=== PATIENT | female | born 1980 | race Hispanic/Latino ===

== ENCOUNTER 2025-10-08 22:55 | Inpatient (IN) | payer SELFPAY ==
[~2025-10-08] VITALS: Ht 165.1 cm; Wt 78.3 kg
[2025-10-09 00:01] LABS: IMMATURE GRANULOCYTE ABSOLUTE 0.04 K/uL (0-1); NUCLEATED RED BLOOD CELLS 0.0 % (0.0-0.19); PLATELET COUNT (AUTO) 300 K/uL (130-400); RED BLOOD CELL COUNT(AUTO) 4.01 MIL/uL (4.00-5.50); RED CELL DISTRIBUTION WIDTH 12.6 % (11.0-15.5); WHITE BLOOD COUNT (AUTO) 10.7 K/uL (4.8-10.8)
[2025-10-09 00:04] LABS: APPEARANCE,URINE CLOUDY (CLEAR); GLUCOSE, URINE (UA) NEGATIVE (NEGATIVE); HCG,QUALITATIVE URINE NEGATIVE (NEGATIVE); LEUKOCYTE ESTERASE ,URINE 500 Leu/uL (NEGATIVE); NITRATE,URINE NEGATIVE (NEGATIVE); OCCULT BLOOD,URINE SMALL (NEGATIVE)
[2025-10-09 00:08] LABS: ADD UA MICROSCOPIC YES
[2025-10-09 00:09] LABS: CREATININE 0.8 mg/dL (0.5-1.0); GLOMERULAR FILTR. RATE CALC 93.0 mL/min (>90); GLUCOSE,RANDOM 85.0 mg/dL (70-105); SODIUM SERUM 135.0 mmol/L (136-145); UREA NITROGEN, BLOOD 12.0 mg/dL (7-18)
[2025-10-09] MEDS: 0.9%NACL 1000ML 1,000 ML IV ONE (00:11)
[2025-10-09 00:27] LABS: NON-SQUAMOUS EPITHELIAL CELL 4 /HPF (0-2); SQUAMOUS EPITHELIAL CELL,UR MANY /HPF (0-2)
--- NOTE | 2025-10-09 01:49 | HMCIMG ---
EXAM: CT Abdomen and Pelvis without V contrast CLINICAL HISTORY: Right flank pain TECHNIQUE: Thin collimated axial CT images of the abdomen and pelvis were obtained, with sagittal and coronal reformatted images also submitted. CT scan is done according to ALARA (As Low As Reasonably Achievable). CONTRAST: None COMPARISON: None. FINDINGS: Unremarkable visualized lung parenchyma. Post cholecystectomy status. Mild fatty infiltration of the liver. No obvious focal lesion. No focal lesion in the adrenal glands, pancreas, or spleen. There is a 4 mm nonobstructive calculus in the right kidney upper pole calyx. Mild fatty stranding around the right perinephric region. No evidence of right ureteric calculus No focal abnormality within the liver, gallbladder, pancreas, spleen, adrenals, or kidneys. Large bowel loops are moderately distended with fecal matter. There is no obvious bowel wall thickening. Bowel loops are normal in caliber without evidence of obstruction or ileus. The appendix is normal. The urinary bladder is collapsed. There is an 8 x 8 x 10 cm cystic structure in relation to the right ovary and a 3.5 x 2.7 x 3.2 cm cystic structure in relation to the left ovary. The uterus appears small in size. Abdominal and pelvic vessels are patent. No lymphadenopathy. No free fluid. There is no acute osseous abnormality. IMPRESSIONS: Bilateral ovarian cysts, recommend an ultrasound of the pelvis for further evaluation. Nonobstructive right renal calculus. Mild perinephric fat stranding on the right side, concerning medical renal disease. /[place]
--- NOTE | 2025-10-09 02:12 | ERN ---
General Chief Complaint: Painful Urination Stated Complaint: C/O PAIN WITH BURNING WHEN VOIDING ONSET YESTERDAY Time Seen by MD: 22:57 Time Seen by Midlevel: 22:57 Source: patient History of Present Illness Initial Comments Patient is a 45-year-old female presenting to the emergency department for evaluation of dysuria that started yesterday. Today she developed right flank pain which prompted the ER visit. She denies any vomiting, fever, chills, or any other symptoms at this time Allergies: Coded Allergies: No Known Allergies (Unverified Allergy, Unknown, 10/08/25) Past Medical History Past Medical History: No Pertinent History Past Surgical History: Hysterectomy, Cholecystectomy, Other Surgical History Other: BLADDER LIFT ROS Dictation CONSTITUTIONAL: Negative except for HPI HEAD/FACE: Negative except for HPI EENT: Negative except for HPI RESPIRATORY: Negative except for HPI GASTROINTESTINAL/ABDOMINAL: Negative except for HPI GENITOURINARY: Negative except for HPI MUSCULOSKELETAL: Negative except for HPI INTEGUMENTARY: Negative except for HPI NEUROLOGICAL/PSYCH: Negative except for HPI HEMATOLOGIC/LYMPHATIC: Negative except for HPI All Systems Negative, Except as noted above. 13 point review of systems assessed and all negative except for above. Physical Exam Physical Exam Dictation Vital Signs reviewed General Appearance: Alert, oriented x 3, no acute distress, well developed, nourished. Head and Face: non-traumatic. Eyes: PERRL, pink conjunctivas, eyelid no trauma, anterior chamber with arcus senilis. Ears: Pinnas intact and no signs of trauma or erythema ear canals clear and no discharge TM no erythema Nose: No discharge, no bleeding. Oropharynx: Mouth normal, tongue pink, pharynx clear,no erythema, tonsils no exudates, no abscesses noted, mucous membrane moist Neck: Supple, non-tender, no thyromegaly, no masses, no JVD, no bruits Breast:Deferred Chest:No tenderness, no crepitus, no paradoxical movement, no retractions Lungs:Clear, well-ventilated, symmetric, no rales, no wheezing, no rhonchi, no stridor, good breath sounds bilaterally Heart: Regular rate, regular rhythm, no murmur, no gallops Vascular: no peripheral edema, Abdomen: Soft, positive bowel sounds, nondistended, no guarding, nontender, no rebound, no masses no hepatomegaly, no splenomegaly, no Vazquez's sign, no hernias. Rectal: Deferred Genital: Deferred Neurological: Normal speech, motor function intact, sensory function intact Musculoskeletal: Neck nontender, full range of motion, back nontender, full range of motion, Extremities: nontender, full range of motion Skin: Color pink, dry, no turgor, no rash, no lacerations, no abrasions, no contusions. Lymphatic: Deferred Results Laboratory and Microbiology Lab and Micro Result Laboratory Tests Test 10/08/25 23:35 10/08/25 23:52 Urine Color YELLOW (YELLOW) Urine Appearance CLOUDY (CLEAR) H Urine pH 5.5 (5.0-8.0) Urine Specific Stuart 1.028 (1.001-1.031) Urine Protein 30 mg/dL (NEGATIVE) H Urine Glucose (UA) NEGATIVE mg/dL (NEGATIVE) Urine Ketones 5 mg/dL (NEGATIVE) H Urine Occult Blood SMALL (NEGATIVE) H Urine Nitrate NEGATIVE (NEGATIVE) Urine Bilirubin NEGATIVE mg/dL (NEGATIVE) Urine Urobilinogen 0.2 mg/dL (0.2-1.0) Urine Leukocyte Esterase 500 Hawa/uL (NEGATIVE) H Urine RBC 11-25 /HPF (0-1) H Urine WBC 51-100 /HPF (0-1) H Urine Squamous Epithelial Cells MANY /HPF (0-2) Urine Non-Squamous Epithelial Cells 4 /HPF (0-2) Urine Bacteria FEW /HPF (None Seen) Urine HCG, Qualitative NEGATIVE (NEGATIVE) White Blood Count 10.7 K/uL (4.8-10.8) Red Blood Count 4.01 MIL/uL (4.00-5.50) Hemoglobin 11.9 g/dL (12.0-16.0) L Hematocrit 35.9 % (36-48) L Mean Corpuscular Volume 89.5 fL (79-99) Mean Corpuscular Hemoglobin 29.7 pg (27.0-33.0) Mean Corpuscular Hemoglobin Concent 33.1 g/dL (32.0-36.0) Red Cell Distribution Width 12.6 % (11.0-15.5) Platelet Count 300 K/uL (130-400) Mean Platelet Volume 9.3 fL (7.5-10.5) Immature Granulocyte % (Auto) 0.4 % (0-1) Neutrophils (%) (Auto) 69.2 % (40.0-77.0) Lymphocytes (%) (Auto) 16.7 % (21.0-51.0) L Monocytes (%) (Auto) 12.5 % (3.0-13.0) Eosinophils (%) (Auto) 0.5 % (0.0-8.0) Basophils (%) (Auto) 0.7 % (0.0-5.0) Neutrophils # (Auto) 7.4 K/uL (1.8-7.7) Lymphocytes # (Auto) 1.8 K/uL (1.0-4.8) Monocytes # (Auto) 1.3 K/uL (0.1-1.0) H Eosinophils # (Auto) 0.05 K/uL (0.00-0.70) Basophils # (Auto) 0.08 K/uL (0.00-0.20) Absolute Immature Granulocyte (auto 0.04 K/uL (0-1) Nucleated Red Blood Cells 0.0 % (0.0-0.19) Sodium Level 135 mmol/L (136-145) L Potassium Level 3.4 mmol/L (3.5-5.1) L Chloride Level 98 mmol/L (101-111) L Carbon Dioxide Level 30 mmol/L (21-32) Blood Urea Nitrogen 12 mg/dL (7-18) Creatinine 0.8 mg/dL (0.5-1.0) Glomerular Filtration Rate Calc 93 mL/min (>90) Random Glucose 85 mg/dL (70-105) Total Calcium 8.8 mg/dL (8.5-10.1) Labs Reviewed?: Yes MDM MDM: Differential diagnosis: Pyelonephritis, urinary tract infection, ureter stone Rationale: Tests considered and ordered secondary to shared decision making include: Previous outside records reviewed: Old ER visits. Risk of complication and/or morbidity or mortality of patient management: None Medications-Per medication reconciliation Need for hospitalization: Patient does meet criteria for hospitalization. Need for emergency major/minor surgery: No There are no social concerns with this patient. Prescription drug management Prescriptions will include symptomatic care Patient's prior external medical records from other ER visits were reviewed by me as indicated. Prior testing and results from previous visits were reviewed. Prior tests were taken into account with medical decision making and resource utilization, independent historian/historians were used to obtain complete medical history. I independently interpreted the test that were performed, results were reviewed by me and considered findings on radiology if ordered. Medical management and examination interpretation discussions were had by me with other qualified healthcare professionals as indicated for the patient's care. ED Course Orders Procedure Category Date Status Time Urinalysis Profile LAB 10/08/25 Complete 23:05 ,Urine Test LAB 10/08/25 Complete 23:05 Cbc With Differential LAB 10/08/25 Complete 23:43 Basic Metabolic Panel LAB 10/08/25 Complete 23:43 0.9%Nacl 1000ml (Ns PHA 10/09/25 Complete 1000ml) 00:00 Ketorolac PHA 10/09/25 Complete Tromethamine 15mg/Ml 00:00 Culture Urine CAMILA 10/09/25 In Process 00:08 Ct Abdomen/Pelvis W/O CT 10/09/25 Resulted Contrast 00:12 Ceftriaxone 1g Vial PHA 10/09/25 Complete (Rocephine 1g Inj) 01:30 Tamsulosin Hcl PHA 10/09/25 Complete (Flomax) 02:00 Current Medications Medications (Trade) Dose Ordered Sig/Angelica Route PRN Reason Start Time Stop Time Status Last Admin Dose Admin Ceftriaxone Sodium (ROCEphine 1G INJ) 1 gm ONCE ONCE IVPB 10/09/25 01:30 10/09/25 01:31 DC 10/09/25 01:37 Ketorolac Tromethamine (toRADol) 15 mg ONCE ONCE IV 10/09/25 00:00 10/09/25 00:01 DC 10/09/25 00:11 Sodium Chloride 1,000 ml @ 0 mls/hr ONCE ONCE IV 10/09/25 00:00 10/09/25 00:01 DC 10/09/25 00:11 Tamsulosin HCl (FloMAX) 0.4 mg ONCE ONCE PO 10/09/25 02:00 10/09/25 02:01 DC Vital Signs Date Time Temp Pulse Resp B/P (MAP) Pulse Ox O2 Delivery O2 Flow Rate FiO2 10/08/25 22:58 98.8 101 20 117/78 98 Room Air DX & DISP Disposition: Inpatient Departure Impression: Primary Impression: Right ureteral stone Additional Impressions: Urinary tract infection, Pyelonephritis of right kidney Condition: Stable Referrals: SELF,REFERRAL (PCP) Time of Disposition: 02:11 I have reviewed the case, and I agree with, Diagnosis and Plan I performed the substantive portion of the visit. I have reviewed and personally made and approve the management plan that is documented in the note by myself or the DIMA. I acknowledge for responsibility for the patient's management plan. MARJORIE ACKERMAN PAC Oct 09, 2025 02:12
--- NOTE | 2025-10-09 03:08 | HP ---
[facility] HISTORY AND PHYSICAL Date of Service: Oct 09, 2025 Time of Service: 02:28 PCD: Self Referral HISTORY OF PRESENT ILLNESS: This is a 45 year old female,with past medical history of kidney stone 25 year ago who presents to the ED for complaints of right flank pain started 2 days ago.Patient also reports having frequent urination , painful and burning sensation on urination. Seen and examined patient int he ED awake,alert and coherent,complaints of 8/10 right flank pain .Patient denies fever,nausea,vomiting,chest pain,palpitation and shortness of breath.Last V/S T98.8,HR 101,BP 117/78 Sat 98% RA.Labs: Hgb 11,Hct 35 Platelet 300.Na 135 Potassium 3.4,Chloride .Urinalysis consistent with urinary tract infection.CT abdomen/Pelvis without contrast bilateral ovarian cysts,recommend an ultrasound of the pelvis for further evaluation.Nonobstructive right renal calculus.Mild perinephric fat stranding on the right side,concerning medical renal disease.While in the ER patient received Tamsulosin,Rocephin 1 gram IV, Toradol 15mg IV,NS 1 L NS.Will admit patient for further medical management. REVIEW OF SYSTEMS CONSTITUTIONAL: Denies fevers, chills, or night sweats. No unintentional weight loss reported. NEUROLOGICAL: Denies headache, amaurosis fugax, motor weakness, sensory deficit, vertigo/spinning sensation, gait abnormalities, or tremors. ENT: No hearing loss, otalgia, otorrhea, rhinitis, rhinorrhea, hoarseness, or sore throat. CARDIOVASCULAR: Denies any exertional angina, dyspnea on exertion, orthopnea, paroxysmal nocturnal dyspnea, palpitations, life-threatening arrhythmias, claudication. PULMONARY: Denies any shortness of breath, cough, phlegm/sputum, hemoptysis, pleuritic chest pain. SLEEP: Denies morning headaches, daytime somnolence or napping. Denies difficulty falling asleep, staying asleep, waking from sleep. Denies knowledge of snoring. GASTROINTESTINAL: Denies any type of dysphagia to either liquids or solids. Denies nausea, vomiting, pyrosis, early satiety, abdominal pain, diarrhea, constipation, or changes in stool consistency or caliber. Denies coffee-ground emesis, hematemesis, hematochezia, or melanotic stools. GENITOURINARY: Complained of urinary frequency burning sensation Denies urgency, nocturia, hematuria or incontinence (Storage/Irritative symptoms.) Low urinary stream, straining to void, urinary intermittency or hesitancy, splitting of the voiding stream, terminal dribbling. ENDOCRINOLOGIC: Denies polyuria, polydipsia, polyphagia or heat/cold intolerances. HEMATOLOGIC: Denies thrombophilia/previous clots, or coagulopathy/bleeding disorders. ONCOLOGIC: Denies personal history of malignancy. DERMATOLOGIC: Denies rashes or pruritus. PSYCHIATRIC: Denies any suicidal or homicidal ideation. Denies hallucinations. PAST MEDICAL HISTORY: [ Kidney stone] PAST SURGICAL HISTORY: [ Cholecystectomy,bladder lift R wrist cyst removal bilateral axillary fat removal] PAST SOCIAL HISTORY: [ Patient lives with .Patient denies alcohol,cigarette and recreational drug use ] FAMILY HISTORY: [ noncontributory ] Coded Allergies: No Known Allergies (Unverified Allergy, Unknown, 10/08/25) PHYSICAL EXAM GENERAL APPEARANCE: The patient is awake, alert, and oriented, in no acute cardiopulmonary distress. NEUROLOGICAL: Cranial nerves II-XII grossly intact. Motor is 5/5 in bilateral upper and lower extremities proximal to distal. No sensory deficits. HEENT: Face is symmetric. Pupils are equal and reactive. Extraocular movements are intact. NECK: Supple. No JVD. No thyromegaly. No submental, submandibular, pre- /postauricular, occipital or supraclavicular lymphadenopathy. CHEST: Normal chest expansion. No Telemetry. LUNGS: Absence of any rales, rhonchi or any wheezing. CARDIOVASCULAR: Regular. S1 and S2 normal. No appreciable rubs, murmurs or gallops. ABDOMEN: Soft, nontender, and nondistended. There is no rebound, voluntary guarding, or rigidity. : Deferred. No Ramirez. EXTREMITIES: Non-edematous and not cyanotic. No clubbing. Good capillary refill. SKIN: No skin breakdown. Vital Sign (Last 24 Hours) 10/08/25 22:58 Temp 98.8 Pulse 101 Resp 20 B/P (MAP) 117/78 Pulse Ox 98 O2 Delivery Room Air LABS: Laboratory: Test 10/08/25 23:52 10/08/25 23:35 Range/Units White Blood Count 10.7 4.8-10.8 K/uL Red Blood Count 4.01 4.00-5.50 MIL/uL Hemoglobin 11.9 L 12.0-16.0 g/dL Hematocrit 35.9 L 36-48 % Mean Corpuscular Volume 89.5 79-99 fL Mean Corpuscular Hemoglobin 29.7 27.0-33.0 pg Mean Corpuscular Hemoglobin Concent 33.1 32.0-36.0 g/dL Red Cell Distribution Width 12.6 11.0-15.5 % Platelet Count 300 130-400 K/uL Mean Platelet Volume 9.3 7.5-10.5 fL Immature Granulocyte % (Auto) 0.4 0-1 % Neutrophils (%) (Auto) 69.2 40.0-77.0 % Lymphocytes (%) (Auto) 16.7 L 21.0-51.0 % Monocytes (%) (Auto) 12.5 3.0-13.0 % Eosinophils (%) (Auto) 0.5 0.0-8.0 % Basophils (%) (Auto) 0.7 0.0-5.0 % Neutrophils # (Auto) 7.4 1.8-7.7 K/uL Lymphocytes # (Auto) 1.8 1.0-4.8 K/uL Monocytes # (Auto) 1.3 H 0.1-1.0 K/uL Eosinophils # (Auto) 0.05 0.00-0.70 K/uL Basophils # (Auto) 0.08 0.00-0.20 K/uL Absolute Immature Granulocyte (auto 0.04 0-1 K/uL Nucleated Red Blood Cells 0.0 0.0-0.19 % Sodium Level 135 L 136-145 mmol/L Potassium Level 3.4 L 3.5-5.1 mmol/L Chloride Level 98 L 101-111 mmol/L Carbon Dioxide Level 30 21-32 mmol/L Blood Urea Nitrogen 12 7-18 mg/dL Creatinine 0.8 0.5-1.0 mg/dL Glomerular Filtration Rate Calc 93 >90 mL/min Random Glucose 85 70-105 mg/dL Total Calcium 8.8 8.5-10.1 mg/dL Urine Color YELLOW YELLOW Urine Appearance CLOUDY H CLEAR Urine pH 5.5 5.0-8.0 Urine Specific Alex 1.028 1.001-1.031 Urine Protein 30 H NEGATIVE mg/dL Urine Glucose (UA) NEGATIVE NEGATIVE mg/dL Urine Ketones 5 H NEGATIVE mg/dL Urine Occult Blood SMALL H NEGATIVE Urine Nitrate NEGATIVE NEGATIVE Urine Bilirubin NEGATIVE NEGATIVE mg/dL Urine Urobilinogen 0.2 0.2-1.0 mg/dL Urine Leukocyte Esterase 500 H NEGATIVE Hawa/uL Urine RBC 11-25 H 0-1 /HPF Urine WBC 51-100 H 0-1 /HPF Urine Squamous Epithelial Cells MANY 0-2 /HPF Urine Non-Squamous Epithelial Cells 4 0-2 /HPF Urine Bacteria FEW None Seen /HPF Urine HCG, Qualitative NEGATIVE NEGATIVE DIAGNOSTICS / RADIOLOGY: [ ] ASSESSMENT: Right flank pain secondary to non obstructive right renal calculus POA Acute urinary tract infection POA Hypokalemia POA Hyponatremia POA Hypochloremia POA Bilateral ovarian cysts per CT POA PLAN: We will admit patient in medical surgical We will start on regular diet We will start on tamsulosin 0.4 mg p.o. daily We will start on NS @100 ml/hr x 1 bag and re evaluate Continue Rocephin 1 g IV b.i.d. for empiric coverage We will start on famotidine 20 mg p.o. daily for GI prophylaxis We will replace electrolytes as needed per protocol We will add prn medication for fever,pain,cough , nausea and vomiting We will seek urology consultation We will request labs in am Further orders to follow depending on above results Case discussed with attending physician and came up with above treatment and plan of care. ADVANCED CARE PLANNING 1. Which of the following were discussed? Hospice Care - No Therapeutic options - Yes Advance Directives - No Other discussions - 2. Discussed with who? Patient 3. Voluntary nature of this service was explained to the patient? Yes 4. Amount of time spent - __23 min 5. Reviewed by Physician? (if this service was performed by NPP) Yes Patient seen and examined by me. Agree with note by STUDENT DEVELOPMENT SPECIALIST SEE ADDITIONAL ORDERS PER CHART DISCUSSED WITH NURSING STAFF BRETT PATELP Oct 09, 2025 03:08
[2025-10-09] MEDS ORDERED: MAGNESIUM 2GM PREMIX 50ML 50 ML IV PRN (03:30)
[2025-10-09] MEDS ORDERED: PoTASSium chl 10% ELIXIR 20MEQ 20 MEQ/15 ML UDCUP PO PRN (03:30)
[2025-10-09] MEDS: PoTASSium chloRIDE 20MEQ ER 20 MEQ ERTAB PO PRN (03:58)
[2025-10-09] MEDS: HYDROcodone/APAP 5/325 1 TAB TABLET PO ONE (03:58)
[2025-10-09] MEDS: 0.9%NACL 1000ML 1,000 ML IV SCH (03:58)
[2025-10-09 04:00] VITALS: BP 110/86; PULSE 81; RESP 18; TEMP 97.8
[2025-10-09 04:52] LABS: IMMATURE GRANULOCYTE ABSOLUTE 0.02 K/uL (0-1); NUCLEATED RED BLOOD CELLS 0.0 % (0.0-0.19); PLATELET COUNT (AUTO) 272 K/uL (130-400); RED BLOOD CELL COUNT(AUTO) 3.66 MIL/uL (4.00-5.50); RED CELL DISTRIBUTION WIDTH 12.7 % (11.0-15.5); WHITE BLOOD COUNT (AUTO) 8.5 K/uL (4.8-10.8)
[2025-10-09 05:19] LABS: ASPARTATE AMINOTRANSFERASE 27.0 U/L (10-37); CREATININE 0.7 mg/dL (0.5-1.0); GLOMERULAR FILTR. RATE CALC 109.0 mL/min (>90); GLUCOSE,RANDOM 84.0 mg/dL (70-105); SODIUM SERUM 136.0 mmol/L (136-145); TOTAL PROTEIN, SERUM 7.3 g/dL (6.0-8.3); UREA NITROGEN, BLOOD 12.0 mg/dL (7-18)
[2025-10-09 08:00] VITALS: BP 102/65; PULSE 59; RESP 16; TEMP 97.4
[2025-10-09] MEDS: FAMOTIDINE 20MG TAB PO SCH (08:51)
--- NOTE | 2025-10-09 10:36 | PN ---
[facility] PROGRESS NOTE Date of Service: Oct 09, 2025 Time of Service: 10:36 SUBJECTIVE: HISTORY OF PRESENT ILLNESS: This is a 45 year old female,with past medical history of kidney stone 25 year ago who presents to the ED for complaints of right flank pain started 2 days ago.Patient also reports having frequent urination , painful and burning sensation on urination. Seen and examined patient int he ED awake,alert and coherent,complaints of 8/10 right flank pain .Patient denies fever,nausea,vomiting,chest pain,palpitation and shortness of breath.Last V/S T98.8,HR 101,BP 117/78 Sat 98% RA.Labs: Hgb 11,Hct 35 Platelet 300.Na 135 Potassium 3.4,Chloride .Urinalysis consistent with urinary tract infection.CT abdomen/Pelvis without contrast bilateral ovarian cysts,recommend an ultrasound of the pelvis for further evaluation.Nonobstructive right renal calculus.Mild perinephric fat stranding on the right side,concerning medical renal disease.While in the ER patient received Tamsulosin,Rocephin 1 gram IV, Toradol 15mg IV,NS 1 L NS.Will admit patient for further medical management. 10/09/2025: Patient was seen and evaluated this morning, no family at bedside. Case discussed with RN, no acute overnight events. Patient is awake, alert, oriented x3, saturating 98% with room air. Patient complains of pain in suprapubic region and right flank, painful and burning sensation while urinating . She denies chest pain, shortness of breath, palpitations. Urinalysis positive for UTI, pending culture. Abdominal CT showed bilateral ovarian cyst, nonobstructing right renal calculus. Ultrasound pelvis was ordered to further evaluate ovarian cyst. Continue Flomax, Rocephin, IV fluids, Pepcid. REVIEW OF SYSTEMS CONSTITUTIONAL: Denies fevers, chills, or night sweats. No unintentional weight loss reported. NEUROLOGICAL: Denies headache, amaurosis fugax, motor weakness, sensory deficit, vertigo/spinning sensation, gait abnormalities, or tremors. ENT: No hearing loss, otalgia, otorrhea, rhinitis, rhinorrhea, hoarseness, or sore throat. CARDIOVASCULAR: Denies any exertional angina, dyspnea on exertion, orthopnea, paroxysmal nocturnal dyspnea, palpitations, life-threatening arrhythmias, claudication. PULMONARY: Denies any shortness of breath, cough, phlegm/sputum, hemoptysis, pleuritic chest pain. SLEEP: Denies morning headaches, daytime somnolence or napping. Denies difficulty falling asleep, staying asleep, waking from sleep. Denies knowledge of snoring. GASTROINTESTINAL: Denies any type of dysphagia to either liquids or solids. Denies nausea, vomiting, pyrosis, early satiety, abdominal pain, diarrhea, constipation, or changes in stool consistency or caliber. Denies coffee-ground emesis, hematemesis, hematochezia, or melanotic stools. GENITOURINARY: Complained of urinary frequency burning sensation Denies urgency, nocturia, hematuria or incontinence (Storage/Irritative symptoms.) Low urinary stream, straining to void, urinary intermittency or hesitancy, splitting of the voiding stream, terminal dribbling. ENDOCRINOLOGIC: Denies polyuria, polydipsia, polyphagia or heat/cold intolerances. HEMATOLOGIC: Denies thrombophilia/previous clots, or coagulopathy/bleeding disorders. ONCOLOGIC: Denies personal history of malignancy. DERMATOLOGIC: Denies rashes or pruritus. PSYCHIATRIC: Denies any suicidal or homicidal ideation. Denies hallucinations. PHYSICAL EXAM GENERAL APPEARANCE: The patient is awake, alert, and oriented, in no acute cardiopulmonary distress. NEUROLOGICAL: Cranial nerves II-XII grossly intact. Motor is 5/5 in bilateral upper and lower extremities proximal to distal. No sensory deficits. HEENT: Face is symmetric. Pupils are equal and reactive. Extraocular movements are intact. NECK: Supple. No JVD. No thyromegaly. No submental, submandibular, pre- /postauricular, occipital or supraclavicular lymphadenopathy. CHEST: Normal chest expansion. No Telemetry. LUNGS: Absence of any rales, rhonchi or any wheezing. CARDIOVASCULAR: Regular. S1 and S2 normal. No appreciable rubs, murmurs or gallops. ABDOMEN: Soft, nontender, and nondistended. There is no rebound, voluntary guarding, or rigidity. : Deferred. No Ramirez. EXTREMITIES: Non-edematous and not cyanotic. No clubbing. Good capillary refill. SKIN: No skin breakdown. Vital Signs (last 8hr) Date Time Temp Pulse Resp B/P (MAP) Pulse Ox O2 Delivery O2 Flow Rate FiO2 10/09/25 08:00 97.3 59 16 102/65 100 Room Air 10/09/25 05:00 Room Air* 0 21 10/09/25 04:06 98.4 79 18 100/60 99 Room Air* 0 21 10/09/25 04:00 97.9 81 18 110/86 97 Room Air LABS: Laboratory: Test 10/09/25 09:04 10/09/25 04:41 10/08/25 23:35 Range/Units Lactic Acid Level 1.0 0.8-2.5 mmol/L C-Reactive Protein, Quantitative 67.30 H 0.5-3.0 mg/L Procalcitonin < 0.05 L 0.05-0.5 ng/mL Thyroid Stimulating Hormone (TSH) 2.98 0.36-3.74 uIU/mL White Blood Count 8.5 4.8-10.8 K/uL Red Blood Count 3.66 L 4.00-5.50 MIL/uL Hemoglobin 11.1 L 12.0-16.0 g/dL Hematocrit 32.4 L 36-48 % Mean Corpuscular Volume 88.5 79-99 fL Mean Corpuscular Hemoglobin 30.3 27.0-33.0 pg Mean Corpuscular Hemoglobin Concent 34.3 32.0-36.0 g/dL Red Cell Distribution Width 12.7 11.0-15.5 % Platelet Count 272 130-400 K/uL Mean Platelet Volume 9.4 7.5-10.5 fL Immature Granulocyte % (Auto) 0.2 0-1 % Neutrophils (%) (Auto) 62.1 40.0-77.0 % Lymphocytes (%) (Auto) 22.8 21.0-51.0 % Monocytes (%) (Auto) 13.2 H 3.0-13.0 % Eosinophils (%) (Auto) 0.8 0.0-8.0 % Basophils (%) (Auto) 0.9 0.0-5.0 % Neutrophils # (Auto) 5.3 1.8-7.7 K/uL Lymphocytes # (Auto) 2.0 1.0-4.8 K/uL Monocytes # (Auto) 1.1 H 0.1-1.0 K/uL Eosinophils # (Auto) 0.07 0.00-0.70 K/uL Basophils # (Auto) 0.08 0.00-0.20 K/uL Absolute Immature Granulocyte (auto 0.02 0-1 K/uL Nucleated Red Blood Cells 0.0 0.0-0.19 % Sodium Level 136 136-145 mmol/L Potassium Level 3.4 L 3.5-5.1 mmol/L Chloride Level 100 L 101-111 mmol/L Carbon Dioxide Level 26 21-32 mmol/L Blood Urea Nitrogen 12 7-18 mg/dL Creatinine 0.7 0.5-1.0 mg/dL Glomerular Filtration Rate Calc 109 >90 mL/min Random Glucose 84 70-105 mg/dL Total Calcium 8.3 L 8.5-10.1 mg/dL Magnesium Level 1.90 1.80-2.40 mg/dL Total Bilirubin 0.3 0.2-1.0 mg/dL Aspartate Amino Transf (AST/SGOT) 27 10-37 U/L Alanine Aminotransferase (ALT/SGPT) 26 12-78 U/L Alkaline Phosphatase 81 50-136 U/L Total Protein 7.3 6.0-8.3 g/dL Albumin 3.2 L 3.5-5.0 g/dL Urine Color YELLOW YELLOW Urine Appearance CLOUDY H CLEAR Urine pH 5.5 5.0-8.0 Urine Specific Roff 1.028 1.001-1.031 Urine Protein 30 H NEGATIVE mg/dL Urine Glucose (UA) NEGATIVE NEGATIVE mg/dL Urine Ketones 5 H NEGATIVE mg/dL Urine Occult Blood SMALL H NEGATIVE Urine Nitrate NEGATIVE NEGATIVE Urine Bilirubin NEGATIVE NEGATIVE mg/dL Urine Urobilinogen 0.2 0.2-1.0 mg/dL Urine Leukocyte Esterase 500 H NEGATIVE [place]/uL Urine RBC 11-25 H 0-1 /HPF Urine WBC 51-100 H 0-1 /HPF Urine Squamous Epithelial Cells MANY 0-2 /HPF Urine Non-Squamous Epithelial Cells 4 0-2 /HPF Urine Bacteria FEW None Seen /HPF Urine HCG, Qualitative NEGATIVE NEGATIVE Current Medications Medications (Trade) Dose Ordered Sig/Angelica Route PRN Reason Start Time Stop Time Status Last Admin Dose Admin Acetaminophen (TYLenol 325MG TAB) 650 mg Q4H PRN PO MILD PAIN (1-3) 10/09/25 03:30 11/08/25 03:29 Acetaminophen (TYLenol 325MG TAB) 650 mg Q6H PRN PO TEMPERATURE GREATER THAN 101.5 10/09/25 03:30 11/08/25 03:29 Ceftriaxone Sodium 1 gm/ Sodium Chloride 50 ml @ 100 mls/hr BID IV 10/09/25 09:00 10/09/25 03:26 DC Ceftriaxone Sodium (ROCEphine 1G INJ) 1 gm Q24H IVPB 10/09/25 03:30 10/19/25 03:29 Famotidine (Pepcid 20mg Tab) 20 mg DAILY PO 10/09/25 09:00 11/08/25 08:59 10/09/25 08:51 20 MG Ketorolac Tromethamine (toRADol) 15 mg Q6H PRN IV MODERATE PAIN (4-6) 10/09/25 03:30 10/14/25 03:29 10/09/25 08:50 15 MG Magnesium Sulfate 50 ml @ 0 mls/hr PROTOCOL PRN IV OTHER [SEE ORDER COMMENTS] 10/09/25 03:30 11/08/25 03:29 Ondansetron HCl (zoFRAN 4MG INJ) 4 mg Q6H PRN IV NAUSEA/VOMITING 10/09/25 03:30 11/08/25 03:29 10/09/25 08:50 4 MG Potassium Chloride 100 ml @ 100 mls/hr AD PRN IV POTASSIUM PROTOCOL 10/09/25 03:30 11/08/25 03:29 Potassium Chloride (K-Dur/Klor-Con 20meq) 20 meq AD PRN PO POTASSIUM PROTOCOL 10/09/25 03:30 11/08/25 03:29 10/09/25 08:51 20 MEQ Potassium Chloride (KCl 10% Elixir 20meq/15ml) 20 meq AD PRN PO POTASSIUM PROTOCOL 10/09/25 03:30 11/08/25 03:29 Sodium Chloride 1,000 ml @ 100 mls/hr Q10H IV 10/09/25 03:30 11/08/25 03:29 10/09/25 03:58 100 MLS/HR Tamsulosin HCl (FloMAX) 0.4 mg DAILY PO 10/09/25 09:00 11/08/25 08:59 10/09/25 08:51 0.4 MG DIAGNOSTICS / RADIOLOGY: [place] [address] [address] IMAGING REPORT Signed PATIENT: FE KERR MR#: [id number] : 1980 SEX: F AGE: 45 LOCATION: [facility] ORDER STATUS: [facility] REPORT#: [id number] SERVICE REASON: r/flank pain ORDERING PHYSICIAN: MARJORIE ACKERMAN PAC PROCEDURE: ABD PEL WO - CT ABDOMEN/PELVIS W/O CONTRAST EXAM: CT Abdomen and Pelvis without V contrast CLINICAL HISTORY: Right flank pain TECHNIQUE: Thin collimated axial CT images of the abdomen and pelvis were obtained, with sagittal and coronal reformatted images also submitted. CT scan is done according to ALARA (As Low As Reasonably Achievable). CONTRAST: None COMPARISON: None. FINDINGS: Unremarkable visualized lung parenchyma. Post cholecystectomy status. Mild fatty infiltration of the liver. No obvious focal lesion. No focal lesion in the adrenal glands, pancreas, or spleen. There is a 4 mm nonobstructive calculus in the right kidney upper pole calyx. Mild fatty stranding around the right perinephric region. No evidence of right ureteric calculus No focal abnormality within the liver, gallbladder, pancreas, spleen, adrenals, or kidneys. Large bowel loops are moderately distended with fecal matter. There is no obvious bowel wall thickening. Bowel loops are normal in caliber without evidence of obstruction or ileus. The appendix is normal. The urinary bladder is collapsed. There is an 8 x 8 x 10 cm cystic structure in relation to the right ovary and a 3.5 x 2.7 x 3.2 cm cystic structure in relation to the left ovary. The uterus appears small in size. Abdominal and pelvic vessels are patent. No lymphadenopathy. No free fluid. There is no acute osseous abnormality. IMPRESSIONS: Bilateral ovarian cysts, recommend an ultrasound of the pelvis for further evaluation. Nonobstructive right renal calculus. Mild perinephric fat stranding on the right side, concerning medical renal disease. /[place] DICTATED BY: NGHIA DIAL Jr., MD DATE: 10/09/25247 ELECTRONICALLY SIGNED BY: NGHIA DIAL Jr., MD DATE: 10/09/25 0248 ASSESSMENT: Right flank pain secondary to non obstructive right renal calculus POA Acute urinary tract infection POA Hypokalemia POA Hyponatremia POA Hypochloremia POA Bilateral ovarian cysts per CT POA PLAN: Right flank pain secondary to non obstructive right renal calculus POA CT abdomen pelvis showed nonobstructive right renal calculi, mild perinephric fat stranding on the right side, concerning medical renal disease. On presentation white count 10.7, BUN 12 , creatinine 0.8 Continue Flomax 0.4 mg daily IV sodium chloride 100 mL/hour Toradol, Tylenol PRN for pain Acute urinary tract infection POA On presentation urinalysis positive for UTI On presentation white count 10.7 Patient was started on IV Rocephin1 g Q 24 Pending urine culture We will trend white count daily GI prophylaxis with Pepcid DVT prophylaxis with SCDs ATTESTATION BY PHYSICIAN I have seen and examined the patient. I reviewed the documentation, medical decision making, and treatment plan as noted by the resident physician above. I agree with the findings and plan of care. KHADRA DOYLE MD, ADIL SHAH QUADRI MD Oct 09, 2025 10:36
[2025-10-09 12:00] VITALS: BP 100/65; PULSE 66; RESP 18; TEMP 97.8
--- NOTE | 2025-10-09 14:27 | NUR ---
DCP:HOME Pt currently lives at home with her . Pt denies any DME, home health, or provider services. Pt states that she is able to complete ADLs independently. PCP is [facility] clinic and uses [facility] for any RX needs. At DC pt will want to go home and family can assist with transportation.
[2025-10-09 16:00] VITALS: BP 92/59; PULSE 77; RESP 16; TEMP 97.7
[2025-10-09 20:00] VITALS: BP 104/68; PULSE 80; RESP 16; TEMP 97.7
[2025-10-09] MEDS: LACTULOSE 20 GM/30 ML UDCUP PO ONE (21:41)
[2025-10-09 23:20] VITALS: BP 96/66; PULSE 89; RESP 16; TEMP 99.2
[2025-10-10] VITALS (7 sets, daily range): BP systolic 96–118; BP diastolic 52–73; PULSE 68–87; RESP 16–18; TEMP 97.6–99; O2SAT 99
[2025-10-10 05:20] LABS: NUCLEATED RED BLOOD CELLS 0.0 % (0.0-0.19); PLATELET COUNT (AUTO) 290.0 K/uL (130-400); RED BLOOD CELL COUNT(AUTO) 3.59 MIL/uL (4.00-5.50); RED CELL DISTRIBUTION WIDTH 13.0 % (11.0-15.5); WHITE BLOOD COUNT (AUTO) 7.5 K/uL (4.8-10.8)
[2025-10-10 05:38] LABS: CREATININE 0.7 mg/dL (0.5-1.0); GLOMERULAR FILTR. RATE CALC 109.0 mL/min (>90); GLUCOSE,RANDOM 96.0 mg/dL (70-105); SODIUM SERUM 139.0 mmol/L (136-145); UREA NITROGEN, BLOOD 9.0 mg/dL (7-18)
[2025-10-10 05:42] LABS: ASPARTATE AMINOTRANSFERASE 101.0 U/L (10-37); TOTAL PROTEIN, SERUM 6.2 g/dL (6.0-8.3)
--- NOTE | 2025-10-10 08:28 | HMCIMG ---
EXAMINATION: COMPLETE TRANSABDOMINAL AND TRANSVAGINAL ULTRASOUND OF PELVIS. CLINICAL HISTORY: Bilateral ovarian cysts. COMPARISON: CT abdomen and pelvis without contrast from the same day. TECHNIQUE: Multiple real-time grayscale images of the pelvis were obtained with transabdominal and transvaginal transducers. In addition, color Doppler is medically necessary to perform to assess for vascularity and blood flow. FINDINGS: The uterus is not visualized, post hysterectomy status. There is a possible Nabothian cyst that measures 1.7 x 1.3 x 1.4 cm in the cervix. The right ovary is normal in caliber and measures 2.5 x 2.5 x 1.7 cm. There is an exophytic cyst that measures 0.9 x 0.7 x 0.9 cm. The left ovary is normal in caliber and measures 3.2 x 2.1 x 2.5 cm. There is a cyst that measures 2.6 x 2.0 x 2.9 cm. No septations, internal echoes, or solid components seen. Vascularity of the ovaries is normal. There is no free fluid in the pelvis. IMPRESSION: Post hysterectomy status. Possible Nabothian cyst in the cervix. Right ovarian exophytic cyst. Left ovarian simple cyst. /[place]
--- NOTE | 2025-10-10 09:09 | PN ---
[facility] PROGRESS NOTE Date of Service: Oct 10, 2025 Time of Service: 08:58 SUBJECTIVE: HISTORY OF PRESENT ILLNESS: This is a 45 year old female,with past medical history of kidney stone 25 year ago who presents to the ED for complaints of right flank pain started 2 days ago.Patient also reports having frequent urination , painful and burning sensation on urination. Seen and examined patient int he ED awake,alert and coherent,complaints of 8/10 right flank pain .Patient denies fever,nausea,vomiting,chest pain,palpitation and shortness of breath.Last V/S T98.8,HR 101,BP 117/78 Sat 98% RA.Labs: Hgb 11,Hct 35 Platelet 300.Na 135 Potassium 3.4,Chloride .Urinalysis consistent with urinary tract infection.CT abdomen/Pelvis without contrast bilateral ovarian cysts,recommend an ultrasound of the pelvis for further evaluation.Nonobstructive right renal calculus.Mild perinephric fat stranding on the right side,concerning medical renal disease.While in the ER patient received Tamsulosin,Rocephin 1 gram IV, Toradol 15mg IV,NS 1 L NS.Will admit patient for further medical management. 10/09/2025: Patient was seen and evaluated this morning, no family at bedside. Case discussed with RN, no acute overnight events. Patient is awake, alert, oriented x3, saturating 98% with room air. Patient complains of pain in suprapubic region and right flank, painful and burning sensation while urinating . She denies chest pain, shortness of breath, palpitations. Urinalysis positive for UTI, pending culture. Abdominal CT showed bilateral ovarian cyst, nonobstructing right renal calculus. Ultrasound pelvis was ordered to further evaluate ovarian cyst. Continue Flomax, Rocephin, IV fluids, Pepcid. 10.10.2025: Patient is seen and evaluated in room number 411. She reports that she slept well overnight. She mentions she had been uncomfortable over the past few days because she had not been able to have a bowel movement since Sunday; however, she finally had a bowel movement today and feels overall much better. She initially presented with a urinary tract infection. Her urine culture grew more than 100,000 colony-forming units, and identification and sensitivities are still pending. She remains on ceftriaxone. Her WBC has trended down to 7.5, and her procalcitonin is less than 0.05. She is aware that her liver enzymes were elevated, with AST 101, ALT 79, and alkaline phosphatase 147. Stopped Ceftriaxone and started on Zosyn. She denies abdominal pain, nausea, vomiting, or jaundice. Imaging previously showed a non-obstructive 4 mm stone in the right kidney upper pole calyx with mild perinephritic fat stranding. Further evaluation with pelvic ultrasound revealed a right ovarian exophytic cyst measuring 0.9 0.7 0.9 cm and a left ovarian simple cyst measuring 2.6 2 2.9 cm. She denies pelvic pain or pressure. Overall, the patient states she is feeling well today. We will continue to monitor her clinical status and follow up on repeat labs and pending culture results. REVIEW OF SYSTEMS CONSTITUTIONAL: Denies fevers, chills, or night sweats. No unintentional weight loss reported. NEUROLOGICAL: Denies headache, amaurosis fugax, motor weakness, sensory deficit, vertigo/spinning sensation, gait abnormalities, or tremors. ENT: No hearing loss, otalgia, otorrhea, rhinitis, rhinorrhea, hoarseness, or sore throat. CARDIOVASCULAR: Denies any exertional angina, dyspnea on exertion, orthopnea, paroxysmal nocturnal dyspnea, palpitations, life-threatening arrhythmias, claudication. PULMONARY: Denies any shortness of breath, cough, phlegm/sputum, hemoptysis, pleuritic chest pain. SLEEP: Denies morning headaches, daytime somnolence or napping. Denies difficulty falling asleep, staying asleep, waking from sleep. Denies knowledge of snoring. GASTROINTESTINAL: Denies any type of dysphagia to either liquids or solids. Denies nausea, vomiting, pyrosis, early satiety, abdominal pain, diarrhea, constipation, or changes in stool consistency or caliber. Denies coffee-ground emesis, hematemesis, hematochezia, or melanotic stools. GENITOURINARY: Denied urinary frequency or burning sensation Denies urgency, nocturia, hematuria or incontinence (Storage/Irritative symptoms.) Low urinary stream, straining to void, urinary intermittency or hesitancy, splitting of the voiding stream, terminal dribbling. ENDOCRINOLOGIC: Denies polyuria, polydipsia, polyphagia or heat/cold intolerances. HEMATOLOGIC: Denies thrombophilia/previous clots, or coagulopathy/bleeding disorders. ONCOLOGIC: Denies personal history of malignancy. DERMATOLOGIC: Denies rashes or pruritus. PSYCHIATRIC: Denies any suicidal or homicidal ideation. Denies hallucinations. PHYSICAL EXAM GENERAL APPEARANCE: The patient is awake, alert, and oriented, in no acute cardiopulmonary distress. NEUROLOGICAL: Cranial nerves II-XII grossly intact. Motor is 5/5 in bilateral upper and lower extremities proximal to distal. No sensory deficits. HEENT: Face is symmetric. Pupils are equal and reactive. Extraocular movements are intact. NECK: Supple. No JVD. No thyromegaly. No submental, submandibular, pre- /postauricular, occipital or supraclavicular lymphadenopathy. CHEST: Normal chest expansion. No Telemetry. LUNGS: Absence of any rales, rhonchi or any wheezing. CARDIOVASCULAR: Regular. S1 and S2 normal. No appreciable rubs, murmurs or gallops. ABDOMEN: Soft, nontender, and nondistended. There is no rebound, voluntary guarding, or rigidity. : Deferred. No Ramirez. EXTREMITIES: Non-edematous and not cyanotic. No clubbing. Good capillary refill. SKIN: No skin breakdown. Vital Signs (last 8hr) Date Time Temp Pulse Resp B/P (MAP) Pulse Ox O2 Delivery O2 Flow Rate FiO2 10/10/25 04:00 99.0 80 16 102/60 96 Room Air LABS: Laboratory: Test 10/10/25 05:04 10/09/25 09:04 10/09/25 04:41 10/08/25 23:35 Range/Units White Blood Count 7.5 4.8-10.8 K/uL Red Blood Count 3.59 L 4.00-5.50 MIL/uL Hemoglobin 10.8 L 12.0-16.0 g/dL Hematocrit 32.4 L 36-48 % Mean Corpuscular Volume 90.3 79-99 fL Mean Corpuscular Hemoglobin 30.1 27.0-33.0 pg Mean Corpuscular Hemoglobin Concent 33.3 32.0-36.0 g/dL Red Cell Distribution Width 13.0 11.0-15.5 % Platelet Count 290 130-400 K/uL Mean Platelet Volume 9.7 7.5-10.5 fL Nucleated Red Blood Cells 0.0 0.0-0.19 % Sodium Level 139 136-145 mmol/L Potassium Level 4.2 3.5-5.1 mmol/L Chloride Level 106 101-111 mmol/L Carbon Dioxide Level 26 21-32 mmol/L Blood Urea Nitrogen 9 7-18 mg/dL Creatinine 0.7 0.5-1.0 mg/dL Glomerular Filtration Rate Calc 109 >90 mL/min Random Glucose 96 70-105 mg/dL Lactic Acid Level 1.1 0.8-2.5 mmol/L Total Calcium 8.0 L 8.5-10.1 mg/dL Total Bilirubin 0.2 0.2-1.0 mg/dL Aspartate Amino Transf (AST/SGOT) 101 H 10-37 U/L Alanine Aminotransferase (ALT/SGPT) 79 H 12-78 U/L Alkaline Phosphatase 147 H 50-136 U/L Total Protein 6.2 6.0-8.3 g/dL Albumin 2.7 L 3.5-5.0 g/dL Procalcitonin < 0.05 L 0.05-0.5 ng/mL C-Reactive Protein, Quantitative 67.30 H 0.5-3.0 mg/L Thyroid Stimulating Hormone (TSH) 2.98 0.36-3.74 uIU/mL Immature Granulocyte % (Auto) 0.2 0-1 % Neutrophils (%) (Auto) 62.1 40.0-77.0 % Lymphocytes (%) (Auto) 22.8 21.0-51.0 % Monocytes (%) (Auto) 13.2 H 3.0-13.0 % Eosinophils (%) (Auto) 0.8 0.0-8.0 % Basophils (%) (Auto) 0.9 0.0-5.0 % Neutrophils # (Auto) 5.3 1.8-7.7 K/uL Lymphocytes # (Auto) 2.0 1.0-4.8 K/uL Monocytes # (Auto) 1.1 H 0.1-1.0 K/uL Eosinophils # (Auto) 0.07 0.00-0.70 K/uL Basophils # (Auto) 0.08 0.00-0.20 K/uL Absolute Immature Granulocyte (auto 0.02 0-1 K/uL Magnesium Level 1.90 1.80-2.40 mg/dL Urine Color YELLOW YELLOW Urine Appearance CLOUDY H CLEAR Urine pH 5.5 5.0-8.0 Urine Specific Spencer 1.028 1.001-1.031 Urine Protein 30 H NEGATIVE mg/dL Urine Glucose (UA) NEGATIVE NEGATIVE mg/dL Urine Ketones 5 H NEGATIVE mg/dL Urine Occult Blood SMALL H NEGATIVE Urine Nitrate NEGATIVE NEGATIVE Urine Bilirubin NEGATIVE NEGATIVE mg/dL Urine Urobilinogen 0.2 0.2-1.0 mg/dL Urine Leukocyte Esterase 500 H NEGATIVE Haw[place]/uL Urine RBC 11-25 H 0-1 /HPF Urine WBC 51-100 H 0-1 /HPF Urine Squamous Epithelial Cells MANY 0-2 /HPF Urine Non-Squamous Epithelial Cells 4 0-2 /HPF Urine Bacteria FEW None Seen /HPF Urine HCG, Qualitative NEGATIVE NEGATIVE Current Medications Medications (Trade) Dose Ordered Sig/Angelica Route PRN Reason Start Time Stop Time Status Last Admin Dose Admin Acetaminophen (TYLenol 325MG TAB) 650 mg Q4H PRN PO MILD PAIN (1-3) 10/09/25 03:30 11/08/25 03:29 10/10/25 03:53 650 MG Acetaminophen (TYLenol 325MG TAB) 650 mg Q6H PRN PO TEMPERATURE GREATER THAN 101.5 10/09/25 03:30 11/08/25 03:29 Ceftriaxone Sodium 1 gm/ Sodium Chloride 50 ml @ 100 mls/hr BID IV 10/09/25 09:00 10/09/25 03:26 DC Ceftriaxone Sodium (ROCEphine 1G INJ) 1 gm Q24H IVPB 10/09/25 03:30 10/19/25 03:29 10/10/25 03:16 1 GM Famotidine (Pepcid 20mg Tab) 20 mg DAILY PO 10/09/25 09:00 11/08/25 08:59 10/10/25 08:52 20 MG Ketorolac Tromethamine (toRADol) 15 mg Q6H PRN IV MODERATE PAIN (4-6) 10/09/25 03:30 10/14/25 03:29 10/09/25 08:50 15 MG Magnesium Sulfate 50 ml @ 0 mls/hr PROTOCOL PRN IV OTHER [SEE ORDER COMMENTS] 10/09/25 03:30 11/08/25 03:29 Ondansetron HCl (zoFRAN 4MG INJ) 4 mg Q6H PRN IV NAUSEA/VOMITING 10/09/25 03:30 11/08/25 03:29 10/09/25 08:50 4 MG Potassium Chloride 100 ml @ 100 mls/hr AD PRN IV POTASSIUM PROTOCOL 10/09/25 03:30 11/08/25 03:29 Potassium Chloride (K-Dur/Klor-Con 20meq) 20 meq AD PRN PO POTASSIUM PROTOCOL 10/09/25 03:30 11/08/25 03:29 10/09/25 08:51 20 MEQ Potassium Chloride (KCl 10% Elixir 20meq/15ml) 20 meq AD PRN PO POTASSIUM PROTOCOL 10/09/25 03:30 11/08/25 03:29 Sodium Chloride 1,000 ml @ 100 mls/hr Q10H IV 10/09/25 03:30 11/08/25 03:29 10/09/25 03:58 100 MLS/HR Tamsulosin HCl (FloMAX) 0.4 mg DAILY PO 10/09/25 09:00 11/08/25 08:59 10/10/25 08:52 0.4 MG DIAGNOSTICS / RADIOLOGY: [place] [address] IMAGING REPORT Signed PATIENT: FE KERR MR#: [id number] : 1980 SEX: F AGE: 45 LOCATION: [facility] ORDER 140 STATUS: ADM IN REPORT#: [id number] SERVICE [id number] REASON: Bilateral ovarian cyst ORDERING PHYSICIAN: DIANA MAHER MD PROCEDURE: PELVCOMP - US PELVIC NON-OB COMP EXAMINATION: COMPLETE TRANSABDOMINAL AND TRANSVAGINAL ULTRASOUND OF PELVIS. CLINICAL HISTORY: Bilateral ovarian cysts. COMPARISON: CT abdomen and pelvis without contrast from the same day. TECHNIQUE: Multiple real-time grayscale images of the pelvis were obtained with transabdominal and transvaginal transducers. In addition, color Doppler is medically necessary to perform to assess for vascularity and blood flow. FINDINGS: The uterus is not visualized, post hysterectomy status. There is a possible Nabothian cyst that measures 1.7 x 1.3 x 1.4 cm in the cervix. The right ovary is normal in caliber and measures 2.5 x 2.5 x 1.7 cm. There is an exophytic cyst that measures 0.9 x 0.7 x 0.9 cm. The left ovary is normal in caliber and measures 3.2 x 2.1 x 2.5 cm. There is a cyst that measures 2.6 x 2.0 x 2.9 cm. No septations, internal echoes, or solid components seen. Vascularity of the ovaries is normal. There is no free fluid in the pelvis. IMPRESSION: Post hysterectomy status. Possible Nabothian cyst in the cervix. Right ovarian exophytic cyst. Left ovarian simple cyst. /[place] DICTATED BY: DANIEL LOTT MD DATE: 10/10/25926 ELECTRONICALLY SIGNED BY: DANIEL LOTT MD DATE: 10/10/25926 ASSESSMENT: Right flank pain secondary to non obstructive right renal calculus POA Acute urinary tract infection POA Elevated transaminases Hypokalemia POA Hyponatremia POA Hypochloremia POA Bilateral ovarian cysts POA PLAN: Right flank pain secondary to non obstructive right renal calculus POA CT abdomen pelvis showed nonobstructive right renal calculi, mild perinephric fat stranding on the right side, concerning medical renal disease. On presentation white count 10.7, BUN 12 , creatinine 0.8 Continue Flomax 0.4 mg daily IV sodium chloride 100 mL/hour Toradol, Tylenol PRN for pain Acute urinary tract infection POA On presentation urinalysis positive for UTI On presentation white count 10.7 Stopped IV Rocephin1 g Q 24 and started on Zosyn ( Day 1) Urine culture grew gram negative rods We will trend white count daily Elevated transaminases liver enzymes were elevated, with AST 101, ALT 79, and alkaline phosphatase 147. Stopped IV Rocephin1 g Q 24 and started on Zosyn Will reviewed all medications and stopped medications that may cause liver irritation. Will repeat liver function tests with tomorrows labs to monitor trends. Will monitor for symptoms like abdominal pain, nausea, or jaundice. Bilateral ovarian cysts POA pelvic ultrasound revealed a right ovarian exophytic cyst measuring 0.9 0.7 0.9 cm and a left ovarian simple cyst measuring 2.6 2 2.9 cm. GI prophylaxis with Pepcid DVT prophylaxis with SCDs ATTESTATION BY PHYSICIAN I have seen and examined the patient. I reviewed the documentation, medical decision making, and treatment plan as noted by the resident provider above. I agree with the findings and plan of care. Philip Berry MD, LAKSHMI MD Oct 10, 2025 09:09
[2025-10-11 00:05] VITALS: BP 118/68; PULSE 68; RESP 18; TEMP 98.3
[2025-10-11 04:03] VITALS: BP 107/63; PULSE 76; RESP 18; TEMP 98.2
[2025-10-11 05:50] LABS: IMMATURE GRANULOCYTE ABSOLUTE 0.02 K/uL (0-1); NUCLEATED RED BLOOD CELLS 0.0 % (0.0-0.19); PLATELET COUNT (AUTO) 304 K/uL (130-400); RED BLOOD CELL COUNT(AUTO) 3.49 MIL/uL (4.00-5.50); RED CELL DISTRIBUTION WIDTH 13.0 % (11.0-15.5); WHITE BLOOD COUNT (AUTO) 7.7 K/uL (4.8-10.8)
[2025-10-11 05:55] LABS: ASPARTATE AMINOTRANSFERASE 73.0 U/L (10-37); CREATININE 0.7 mg/dL (0.5-1.0); GLOMERULAR FILTR. RATE CALC 109.0 mL/min (>90); GLUCOSE,RANDOM 87.0 mg/dL (70-105); SODIUM SERUM 141.0 mmol/L (136-145); TOTAL PROTEIN, SERUM 6.5 g/dL (6.0-8.3); UREA NITROGEN, BLOOD 7.0 mg/dL (7-18)
[2025-10-11 07:30] VITALS: O2SAT 99
[2025-10-11 08:00] VITALS: BP 111/73; PULSE 69; RESP 16; TEMP 98.2
[2025-10-11 12:00] VITALS: BP 110/76; PULSE 77; RESP 16; TEMP 98
--- NOTE | 2025-10-11 15:01 | DS ---
Discharge Summary Hospital Course Summary: This is a 45-year-old female with a history of kidney stones who presented with2 days of right flank pain, dysuria, and urinary frequency. She denied fever, nausea, vomiting, chest pain, or shortness of breath. Urinalysis in the ED was consistent with a urinary tract infection, and CT abdomen pelvis showed bilateral ovarian cysts and nonobstructing renal calculi with mild right perinephric fat stranding. Urine culture grew E coli (greater than [id number] CFU per mL). During hospitalization, she experienced suprapubic and flank discomfort that improved after bowel movement. Pelvic ultrasound confirmed bilateral ovarian cysts without torsion. Laboratory values demonstrated improving white blood cell count and mild transaminitis. By discharge, the patient reported significant improvement in symptoms, was afebrile, and tolerating oral intake. She was discharged home with Augmentin and Tylenol, with instructions to follow up with her primary care physician in 3-5 days. Procedure(s): [address] [id number] IMAGING REPORT Signed PATIENT: FE KERR MR#: [id number] : 1980 SEX: F AGE: 45 LOCATION: [facility] ORDER STATUS: [facility] REPORT#: [id number] SERVICE REASON: r/flank pain ORDERING PHYSICIAN: MARJORIE ACKERMAN PAC PROCEDURE: ABD PEL WO - CT ABDOMEN/PELVIS W/O CONTRAST EXAM: CT Abdomen and Pelvis without V contrast CLINICAL HISTORY: Right flank pain TECHNIQUE: Thin collimated axial CT images of the abdomen and pelvis were obtained, with sagittal and coronal reformatted images also submitted. CT scan is done according to ALARA (As Low As Reasonably Achievable). CONTRAST: None COMPARISON: None. FINDINGS: Unremarkable visualized lung parenchyma. Post cholecystectomy status. Mild fatty infiltration of the liver. No obvious focal lesion. No focal lesion in the adrenal glands, pancreas, or spleen. There is a 4 mm nonobstructive calculus in the right kidney upper pole calyx. Mild fatty stranding around the right perinephric region. No evidence of right ureteric calculus No focal abnormality within the liver, gallbladder, pancreas, spleen, adrenals, or kidneys. Large bowel loops are moderately distended with fecal matter. There is no obvious bowel wall thickening. Bowel loops are normal in caliber without evidence of obstruction or ileus. The appendix is normal. The urinary bladder is collapsed. There is an 8 x 8 x 10 cm cystic structure in relation to the right ovary and a 3.5 x 2.7 x 3.2 cm cystic structure in relation to the left ovary. The uterus appears small in size. Abdominal and pelvic vessels are patent. No lymphadenopathy. No free fluid. There is no acute osseous abnormality. IMPRESSIONS: Bilateral ovarian cysts, recommend an ultrasound of the pelvis for further evaluation. Nonobstructive right renal calculus. Mild perinephric fat stranding on the right side, concerning medical renal disease. /[place] DICTATED BY: NGHIA DIAL Jr., MD DATE: 10/09/25247 ELECTRONICALLY SIGNED BY: NGHIA DIAL Jr., MD DATE: 10/09/25247 [place] [address] IMAGING REPORT Signed PATIENT: FE KERR MR#: [id number] : 1980 SEX: F AGE: 45 LOCATION: [facility] ORDER 05 STATUS: ADM IN REPORT#: [id number] SERVICE 140 REASON: Bilateral ovarian cyst ORDERING PHYSICIAN: DIANA MAHER MD PROCEDURE: PELVCOMP - US PELVIC NON-OB COMP EXAMINATION: COMPLETE TRANSABDOMINAL AND TRANSVAGINAL ULTRASOUND OF PELVIS. CLINICAL HISTORY: Bilateral ovarian cysts. COMPARISON: CT abdomen and pelvis without contrast from the same day. TECHNIQUE: Multiple real-time grayscale images of the pelvis were obtained with transabdominal and transvaginal transducers. In addition, color Doppler is medically necessary to perform to assess for vascularity and blood flow. FINDINGS: The uterus is not visualized, post hysterectomy status. There is a possible Nabothian cyst that measures 1.7 x 1.3 x 1.4 cm in the cervix. The right ovary is normal in caliber and measures 2.5 x 2.5 x 1.7 cm. There is an exophytic cyst that measures 0.9 x 0.7 x 0.9 cm. The left ovary is normal in caliber and measures 3.2 x 2.1 x 2.5 cm. There is a cyst that measures 2.6 x 2.0 x 2.9 cm. No septations, internal echoes, or solid components seen. Vascularity of the ovaries is normal. There is no free fluid in the pelvis. IMPRESSION: Post hysterectomy status. Possible Nabothian cyst in the cervix. Right ovarian exophytic cyst. Left ovarian simple cyst. /[place] DICTATED BY: DANIEL LOTT MD DATE: 10/10/25926 ELECTRONICALLY SIGNED BY: DANIEL LOTT MD DATE: 10/10/25926 Assessment/Plan: ASSESSMENT: Right flank pain secondary to non obstructive right renal calculus POA Acute urinary tract infection POA Elevated transaminases Hypokalemia POA Hyponatremia POA Hypochloremia POA Bilateral ovarian cysts POA Discharge Instructions: Follow up with primary care physician in 3-5 days. Complete antibiotic use. Keep hydrated with plenty of fluids. Home Medications: Active Scripts Acetaminophen (Tylenol) 500 Mg Tab, 1 TAB PO Q6HPRN PRN for pain or fever for 15 Days, #60 TAB 0 Refills Prov:ELOISA MARISCAL MD 10/11/25 Amoxicillin/Potassium Clav (Amox Tr-K Clv 875-125 mg Tab) 875 Mg-125 Mg Tablet, 1 TAB PO BID for 10 Days, #20 TAB 0 Refills Prov:ELOISA MARISCAL MD 10/11/25 New Medications: Acetaminophen (Tylenol) 500 Mg Tab 1 TAB PO Q6HPRN PRN for pain or fever for 15 Days, #60 TAB 0 Refills Amoxicillin/Potassium Clav (Amox Tr-K Clv 875-125 mg Tab) 875 Mg-125 Mg Tablet 1 TAB PO BID for 10 Days, #20 TAB 0 Refills Time spent arranging discharge: 1-30 minutes ATTESTATION BY PHYSICIAN I have seen and examined the patient. I reviewed the documentation, medical decision making, and treatment plan as noted by the resident physician above. I agree with the findings and plan of care. KHADRA DOYLE MD, GERARDO MD Oct 11, 2025 15:01
--- NOTE | 2025-10-11 15:22 | NUR ---
DISCHARGE PIV DC'D PATIENT INFORMED OF TYLENOL AND AMOXICILLIN SENT TO PREFERRED PHARMACY. PATIENT TO FOLLOW UP WITH PCP. ALL QUESTIONS ANSWERED PRIOR TO DISCHARGE.
== END 2025-10-11 15:20 | disposition home or self-care (01) | DRG 694 ==
LOC: EDH 22:55 → EDHIP 22:56 → 4BH 10-09 04:30
PROVIDERS: ADMIT Hospitalist; ATTEND Hospitalist
DX: N20.2 Calculus of kidney with calculus of ureter (principal); E87.1 Hypo-osmolality and hyponatremia; N39.0 Urinary tract infection, site not specified; B96.20 Unspecified Escherichia coli [E. coli] as the cause of diseases classified elsewhere; N83.292 Other ovarian cyst, left side; E87.6 Hypokalemia; N83.291 Other ovarian cyst, right side; E87.8 Other disorders of electrolyte and fluid balance, not elsewhere classified; Z90.710 Acquired absence of both cervix and uterus
CPT/HCPCS: 36415; 74176; 76856; 80048; 80053; 81001; 81025; 83605; 83735; 84145; 84443; 85025; 85027; 86140; 87086; 87186; 96374; 96375; 99285; G0378; J0696; J1885; J2405; J7030